=== PATIENT | female | born 1960 | race Two or more races ===

== ENCOUNTER 2020-04-08 14:21 | Outpatient (AMBR) | payer BC, SELFPAY ==
--- NOTE | 2020-03-10 16:29 | PT.OIERPT ---
PT OP Initial Eval Patient Information Visit Reasons: right shoulder post op Medical Diagnosis: M75.101 Treatment Dx #1: Right Shoulder Mobility Deficits Treatment Dx #2: Right Shoulder Weakness Start of Care: 03/10/20 Date of Onset: 02/21/20 Initial Assessment Subjective Pt is a 59 y/o female s/p right rotator cuff repair and 02/21/20 due to previous rotator cuff tear. Pt still has pain (7/10) with all activities. Pt has limitation with overhead motions, chores, cooking, cleaning, work duties, lifting, and performing ADLs. Objective Right Shoulder AROM Flexion: 100 deg Abduction: 80 deg ER and IR: unable due to pain Right Shoulder PROM FLexion: 120 deg Abduction: 110 deg External Rotation: 80 deg Internal Rotation: 50 deg Right Shoulder MMTs grossly 3-/5 Right Scapula MMTs: grossly 3-/5 Assessment Pt demonstrate right shoulder mobility and strength deficits s/p rotator cuff repair leading to decline function. Pt will benefit from physical therapy to increase ROM, strength, and work on stability Short Term and [employer]iller Goals 1) Increase right shoulder AROM WNL in 12 wks to be able to perform overhead motions 2) Increase right shoulder MMTs grossly to 3+/5 in 12 wks to be able to perform lifting activities 3) Decrease shoulder pain to 2/10 in 12 wks to be able to sleep more than 6 hrs 4) Increase right scapula MMTs grossly to 3+/5 in 12 wks to be able to perform self care activities 5) Indep with HEP Treatment Plan 1) Manual Therapy 2) Therapeutic Activities 3) Therapeutic Exercises 4) Modalities (ice, heat) Frequency and Duration 2 x wk for 12 wks Certification Dates: 03/10/20 to 06/08/20 Office Procedures PT Procedures PT Date of Service: 03/10/20 OP PT Eval Mod Complex 30 minutes: Yes
--- NOTE | 2020-03-13 15:58 | PT.ODAYNRPT ---
PT Outpatient Daily Note Date of Service: 03/13/20 OP Daily Note Visit Reasons: right shoulder post op Outpatient Physical Therapy Treatment Date: 03/13/20 Subjective: Pt mention that shoulder feels sore. Pt has been doing exercises at home Objective: Please see flow chart for list of ther ex performed Assessment: tolerate exercises with minimal pain Plan: Continue with PT Length of Time (minutes) of Treatment: 30 Minutes Office Procedures PT Procedures PT Date of Service: 03/10/20 OP PT Eval Mod Complex 30 minutes: Yes PT Procedures PT Date of Service: 03/13/20 Therapeutic Exercise 30 minutes: Yes
--- NOTE | 2020-03-17 15:51 | PT.ODAYNRPT ---
PT Outpatient Daily Note Date of Service: 03/17/20 OP Daily Note Visit Reasons: right shoulder post op Outpatient Physical Therapy Treatment Date: 03/17/20 Subjective: Pt's shoulder is sore today but is doing okay no concerns. Objective: Please see flow chart for list of ther ex performed Assessment: demonstrate improvement with AAROM in flexion and scaption during finger ladder exercise Plan: Continue with PT Length of Time (minutes) of Treatment: 30 Minutes Office Procedures PT Procedures PT Date of Service: 03/10/20 OP PT Eval Mod Complex 30 minutes: Yes PT Procedures PT Date of Service: 03/17/20 Therapeutic Exercise 30 minutes: Yes PT Procedures PT Date of Service: 03/13/20 Therapeutic Exercise 30 minutes: Yes
--- NOTE | 2020-03-19 16:04 | PT.ODAYNRPT ---
PT Outpatient Daily Note Date of Service: 03/19/20 OP Daily Note Visit Reasons: right shoulder post op Outpatient Physical Therapy Treatment Date: 03/19/20 Subjective: Pt's shoulder feels better but notice more pain at night after her exercises. Pt has been able to move her arm more with less pain Objective: Please see flow chart for list of ther ex performed Assessment: tolerate exercises; continues to improve with AAROM in all plane. less guarded today with PROM Plan: Continue with PT Length of Time (minutes) of Treatment: 40 Minutes Office Procedures PT Procedures PT Date of Service: 03/10/20 OP PT Eval Mod Complex 30 minutes: Yes PT Procedures PT Date of Service: 03/17/20 Therapeutic Exercise 30 minutes: Yes PT Procedures PT Date of Service: 03/19/20 Therapeutic Exercise 45 minutes: Yes PT Procedures PT Date of Service: 03/13/20 Therapeutic Exercise 30 minutes: Yes
--- NOTE | 2020-03-23 15:25 | PT.ODAYNRPT ---
PT Outpatient Daily Note Date of Service: 03/23/20 OP Daily Note Visit Reasons: right shoulder post op Outpatient Physical Therapy Treatment Date: 03/23/20 Subjective: Pt's shoulder better. Pt sore after each visit but reaching to shoulder height is getting easier Objective: Please see flow chart for list of ther ex performed Assessment: tolerate exercises; less pain with AAROM past shoulder height Plan: Continue with PT Length of Time (minutes) of Treatment: 40 Minutes Office Procedures PT Procedures PT Date of Service: 03/10/20 OP PT Eval Mod Complex 30 minutes: Yes PT Procedures PT Date of Service: 03/17/20 Therapeutic Exercise 30 minutes: Yes PT Procedures PT Date of Service: 03/19/20 Therapeutic Exercise 45 minutes: Yes PT Procedures PT Date of Service: 03/13/20 Therapeutic Exercise 30 minutes: Yes PT Procedures PT Date of Service: 03/23/20 Therapeutic Exercise 45 minutes: Yes
--- NOTE | 2020-03-26 15:30 | PT.ODAYNRPT ---
PT Outpatient Daily Note Date of Service: 03/26/20 OP Daily Note Visit Reasons: right shoulder post op Outpatient Physical Therapy Treatment Date: 03/26/20 Subjective: Pt's shoulder sore at night and still has difficulty sleeping on it. Objective: Please see flow chart for list of ther ex performed Assessment: tolerate exercises with minimal pain; less guarded today with all AAROM and continues to progress with ROM Plan: Continue with PT Length of Time (minutes) of Treatment: 40 Minutes Office Procedures PT Procedures PT Date of Service: 03/10/20 OP PT Eval Mod Complex 30 minutes: Yes PT Procedures PT Date of Service: 03/17/20 Therapeutic Exercise 30 minutes: Yes PT Procedures PT Date of Service: 03/19/20 Therapeutic Exercise 45 minutes: Yes PT Procedures PT Date of Service: 03/13/20 Therapeutic Exercise 30 minutes: Yes PT Procedures PT Date of Service: 03/23/20 Therapeutic Exercise 45 minutes: Yes PT Procedures PT Date of Service: 03/26/20 Therapeutic Exercise 45 minutes: Yes
--- NOTE | 2020-03-31 14:53 | PT.ODAYNRPT ---
PT Outpatient Daily Note Date of Service: 03/31/20 OP Daily Note Visit Reasons: right shoulder post op Outpatient Physical Therapy Treatment Date: 03/31/20 Subjective: Pt is having less pain in the shoulder when she sleeps. Pt feels a lot better this week and notice she can reach higher Objective: Please see flow chart for list of ther ex performed Assessment: tolerate exercises with minimal pain Plan: Continue with PT Length of Time (minutes) of Treatment: 40 Minutes Office Procedures PT Procedures PT Date of Service: 03/10/20 OP PT Eval Mod Complex 30 minutes: Yes PT Procedures PT Date of Service: 03/17/20 Therapeutic Exercise 30 minutes: Yes PT Procedures PT Date of Service: 03/19/20 Therapeutic Exercise 45 minutes: Yes PT Procedures PT Date of Service: 03/13/20 Therapeutic Exercise 30 minutes: Yes PT Procedures PT Date of Service: 03/23/20 Therapeutic Exercise 45 minutes: Yes PT Procedures PT Date of Service: 03/26/20 Therapeutic Exercise 45 minutes: Yes PT Procedures PT Date of Service: 03/31/20 Therapeutic Exercise 45 minutes: Yes
--- NOTE | 2020-04-06 14:57 | PT.ODAYNRPT ---
PT Outpatient Daily Note Date of Service: 04/06/20 OP Daily Note Visit Reasons: right shoulder post op Outpatient Physical Therapy Treatment Date: 04/06/20 Subjective: Pt mention that shoulder feels better. Pt still notice a little pain but able to reach higher Objective: Please see flow chart for list of ther ex performed Assessment: tolerate exercises with minimal pain; continues to improve with shoulder AAROM beyond shoulder height with less pain Plan: Continue with PT Length of Time (minutes) of Treatment: 30 Minutes Office Procedures PT Procedures PT Date of Service: 03/10/20 OP PT Eval Mod Complex 30 minutes: Yes PT Procedures PT Date of Service: 03/17/20 Therapeutic Exercise 30 minutes: Yes PT Procedures PT Date of Service: 03/19/20 Therapeutic Exercise 45 minutes: Yes PT Procedures PT Date of Service: 04/06/20 Therapeutic Exercise 30 minutes: Yes PT Procedures PT Date of Service: 03/13/20 Therapeutic Exercise 30 minutes: Yes PT Procedures PT Date of Service: 03/23/20 Therapeutic Exercise 45 minutes: Yes PT Procedures PT Date of Service: 03/26/20 Therapeutic Exercise 45 minutes: Yes PT Procedures PT Date of Service: 03/31/20 Therapeutic Exercise 45 minutes: Yes
--- NOTE | 2020-04-08 14:48 | PT.ODAYNRPT ---
PT Outpatient Daily Note Date of Service: 04/08/20 OP Daily Note Visit Reasons: right shoulder post op Outpatient Physical Therapy Treatment Date: 04/08/20 Subjective: Pt's shoulder is better. No pain noted today and continues to be able to perform light chores around the house lately. Objective: Please see flow chart for list of ther ex performed Assessment: tolerate exercises; minimal pain noted with all exercises Plan: Continue with PT Length of Time (minutes) of Treatment: 30 Minutes Office Procedures PT Procedures PT Date of Service: 03/10/20 OP PT Eval Mod Complex 30 minutes: Yes PT Procedures PT Date of Service: 03/17/20 Therapeutic Exercise 30 minutes: Yes PT Procedures PT Date of Service: 03/19/20 Therapeutic Exercise 45 minutes: Yes PT Procedures PT Date of Service: 04/06/20 Therapeutic Exercise 30 minutes: Yes PT Procedures PT Date of Service: 03/13/20 Therapeutic Exercise 30 minutes: Yes PT Procedures PT Date of Service: 03/23/20 Therapeutic Exercise 45 minutes: Yes PT Procedures PT Date of Service: 03/26/20 Therapeutic Exercise 45 minutes: Yes PT Procedures PT Date of Service: 03/31/20 Therapeutic Exercise 45 minutes: Yes PT Procedures PT Date of Service: 04/08/20 Therapeutic Exercise 30 minutes: Yes
== END 2020-04-09 23:59 | disposition home or self-care (01) ==
PROVIDERS: PCP Physician Assistant Medical; Referring Provider Physician Assistant Medical; Visit Provider Orthopaedic Surgery
DX: Z98.890 Other specified postprocedural states (principal); M75.101 Unspecified rotator cuff tear or rupture of right shoulder, not specified as traumatic; R53.1 Weakness; M25.511 Pain in right shoulder
CPT/HCPCS: 97110; 97162

== ENCOUNTER 2020-05-08 15:28 | Outpatient (AMBR) | payer BC, SELFPAY ==
--- NOTE | 2020-04-13 15:34 | PT.ODAYNRPT ---
PT Outpatient Daily Note Date of Service: 04/13/20 OP Daily Note Visit Reasons: right shoulder post op Outpatient Physical Therapy Treatment Date: 04/13/20 Subjective: Pt mention that she is concerns about her elbow pain. Pt mention that shoulder hurts a little but not too concern. Pt wants to know if she can sleep on her right shoulder now. Objective: Please see flow chart for list of ther ex performed Assessment: tolerate exercises with minimal pain; educated that elbow pain is relating to compensation due to decrease ROM and strength deficits in the shoulder. frequent cues to relax with shoulder external rotation stretch Plan: Continue with PT Length of Time (minutes) of Treatment: 40 Minutes Office Procedures PT Procedures PT Date of Service: 04/13/20 Therapeutic Exercise 45 minutes: Yes
--- NOTE | 2020-04-16 16:01 | PT.ODAYNRPT ---
PT Outpatient Daily Note Date of Service: 04/16/20 OP Daily Note Visit Reasons: right shoulder post op Outpatient Physical Therapy Treatment Date: 04/16/20 Subjective: Pt will be seen her surgeon in May. Pt's shoulder is feeling much better. Objective: Please see flow chart for list of ther ex performed Assessment: noted normal shoulder external rotation PROM which did not need further stretching. Pt continues to improve with AAROM in all plane with less pain Plan: Continue with PT Length of Time (minutes) of Treatment: 40 Minutes Office Procedures PT Procedures PT Date of Service: 04/13/20 Therapeutic Exercise 45 minutes: Yes PT Procedures PT Date of Service: 04/16/20 Therapeutic Exercise 45 minutes: Yes
--- NOTE | 2020-04-23 15:28 | PT.ODAYNRPT ---
PT Outpatient Daily Note Date of Service: 04/23/20 OP Daily Note Visit Reasons: right shoulder post op Outpatient Physical Therapy Treatment Date: 04/23/20 Subjective: Pt mention that her shoulder is a lot better and has been able to reach overhead with less limitation. Objective: Please see flow chart for list of ther ex performed Assessment: tolerate exercises with minimal pain Plan: Continue with PT Length of Time (minutes) of Treatment: 40 Minutes Office Procedures PT Procedures PT Date of Service: 04/13/20 Therapeutic Exercise 45 minutes: Yes PT Procedures PT Date of Service: 04/23/20 Therapeutic Exercise 45 minutes: Yes PT Procedures PT Date of Service: 04/16/20 Therapeutic Exercise 45 minutes: Yes
--- NOTE | 2020-04-28 16:08 | PT.ODAYNRPT ---
PT Outpatient Daily Note Date of Service: 04/28/20 OP Daily Note Visit Reasons: right shoulder post op Outpatient Physical Therapy Treatment Date: 04/28/20 Subjective: Pt mention that her shoulder feels good and can perform overhead motions with less limitation Objective: Please see flow chart for list of ther ex performed Assessment: tolerate exercises with minimal pain; added theraband without noted shoulder pain Plan: Continue with PT Length of Time (minutes) of Treatment: 30 Minutes Office Procedures PT Procedures PT Date of Service: 04/13/20 Therapeutic Exercise 45 minutes: Yes PT Procedures PT Date of Service: 04/23/20 Therapeutic Exercise 45 minutes: Yes PT Procedures PT Date of Service: 04/16/20 Therapeutic Exercise 45 minutes: Yes PT Procedures PT Date of Service: 04/28/20 Therapeutic Exercise 30 minutes: Yes
--- NOTE | 2020-04-30 15:58 | PT.ODS1RPT ---
PT OP Progress/Discharge Note Date of Service: 04/30/20 Progress Note/DC Note Progress Note/Discharge Note: Progress Note Patient Information Visit Reasons: right shoulder post op Medical Diagnosis: M75.101 Treatment Dx #1: Right Shoulder Mobility Deficits Treatment Dx #2: Right Shoulder Weakness Service Continue Service or Discharge: Continue Service Certification Date Certification Dates: 04/30/20 to 07/29/20 Status Subjective: Pt mention that her shoulder feels much better. Pt has been able to perform light chores around the house, wash her hair, and perform shoulder height activities with less limitation. Pt still notice some pain (5/10) based on activities. Pt still unable to sleep on the shoulder due to pain. Objective: Right Shoulder AROM Flexion: 120 deg Abduction: 100 deg External Rotation: 80 deg Internal Rotation: 60 deg Right Shoulder MMTs: grossly 3-/5 Right Scapula MMTs: grossly 3-/5 Assessment: Pt continues to improve with shoulder ROM and strength allowing her to perform light ADLs, chores, and self care activities. Pt still does not have full shoulder ROM and strength leading to difficulty with overhead motions past shoulder height, lifting, and performing recreational activities. Pt will continue to benefit from physical therapy, thank you for your referrals. Plan: Continue with PT/POC and add 12 sessions ( 2 x wk for 6 wks) Office Procedures PT Procedures PT Date of Service: 04/13/20 Therapeutic Exercise 45 minutes: Yes PT Procedures PT Date of Service: 04/23/20 Therapeutic Exercise 45 minutes: Yes PT Procedures PT Date of Service: 04/30/20 Therapeutic Exercise 45 minutes: Yes PT Procedures PT Date of Service: 04/16/20 Therapeutic Exercise 45 minutes: Yes PT Procedures PT Date of Service: 04/28/20 Therapeutic Exercise 30 minutes: Yes
--- NOTE | 2020-05-06 16:03 | PT.ODAYNRPT ---
PT Outpatient Daily Note Date of Service: 05/06/20 OP Daily Note Visit Reasons: right shoulder post op Outpatient Physical Therapy Treatment Date: 05/06/20 Subjective: Pt's shoulder and neck has been hurting for 2 days. Pt feels tightness in her neck with activities. Objective: TTP left levator scapulae and upper trape Assessment: decrease left neck pain after stretching; Pt still exhibit pain with full AROM. Pt's has WFL PROM in all plane when assessed Plan: Continue with PT Length of Time (minutes) of Treatment: 40 Minutes Office Procedures PT Procedures PT Date of Service: 04/13/20 Therapeutic Exercise 45 minutes: Yes PT Procedures PT Date of Service: 04/23/20 Therapeutic Exercise 45 minutes: Yes PT Procedures PT Date of Service: 04/30/20 Therapeutic Exercise 45 minutes: Yes PT Procedures PT Date of Service: 05/06/20 Therapeutic Exercise 45 minutes: Yes PT Procedures PT Date of Service: 04/16/20 Therapeutic Exercise 45 minutes: Yes PT Procedures PT Date of Service: 04/28/20 Therapeutic Exercise 30 minutes: Yes
--- NOTE | 2020-05-08 16:02 | PT.ODAYNRPT ---
PT Outpatient Daily Note Date of Service: 05/08/20 OP Daily Note Visit Reasons: right shoulder post op Outpatient Physical Therapy Treatment Date: 05/08/20 Subjective: Pt's shoulder better but stir or cooking irritate the shoulder Objective: Please see flow chart for list of ther ex performed Assessment: tolerate exercises with minimal pain Plan: Continue with PT Length of Time (minutes) of Treatment: 30 Minutes Office Procedures PT Procedures PT Date of Service: 04/13/20 Therapeutic Exercise 45 minutes: Yes PT Procedures PT Date of Service: 04/23/20 Therapeutic Exercise 45 minutes: Yes PT Procedures PT Date of Service: 04/30/20 Therapeutic Exercise 45 minutes: Yes PT Procedures PT Date of Service: 05/06/20 Therapeutic Exercise 45 minutes: Yes PT Procedures PT Date of Service: 05/08/20 Therapeutic Exercise 30 minutes: Yes PT Procedures PT Date of Service: 04/16/20 Therapeutic Exercise 45 minutes: Yes PT Procedures PT Date of Service: 04/28/20 Therapeutic Exercise 30 minutes: Yes
== END 2020-05-10 23:59 | disposition home or self-care (01) ==
PROVIDERS: PCP Physician Assistant Medical; Referring Provider Physician Assistant Medical; Visit Provider Orthopaedic Surgery
DX: Z98.890 Other specified postprocedural states (principal); M25.511 Pain in right shoulder; M75.01 Adhesive capsulitis of right shoulder; R53.1 Weakness
CPT/HCPCS: 97110

== ENCOUNTER → 2024-05-16 | Outpatient (CLI) | payer BC, SELFPAY ==
--- NOTE | 2024-05-16 16:31 | XR_ITS ---
Examination: PA lateral chest 2 views Technique: Upright PA lateral chest 2 views Exam date and time: May 16, 2024 1733 hrs. Comparison February 20, 2023 Indications: Chest pain beginning 2 weeks ago. Findings: Mild prominence of ventricle Minimal central pulmonary vascular congestion. No pneumonia or pulmonary edema Impression: Minimal central pulmonary vascular congestion
== END | disposition home or self-care (01) ==
PROVIDERS: PCP Internal Medicine; Referring Provider Internal Medicine; Visit Provider Internal Medicine
DX: R09.89 Other specified symptoms and signs involving the circulatory and respiratory systems (principal)
CPT/HCPCS: 71046

== ENCOUNTER → 2024-05-20 | Outpatient (CLI) | payer BC, SELFPAY ==
[2024-05-20 08:47] LABS: Basophils % (Auto) 0 % (0-2.5); Eosinophils # (Auto) 0.2 Thou/mm3 (0.0-0.5); Eosinophils % (Auto) 3 % (0-10); Hematocrit 39.4 % (36.0-46.0); Immature Granulocytes % (Auto) 0 % (0-0); Immature Granulocytes Auto 0.02 Thou/mm3 (0.00-0.00); Lymphocytes # (Auto) 2.6 Thou/mm3 (1.0-4.8); Lymphocytes % (Auto) 46 % (10-50); Mean Corpuscular Hemoglobin 26.6 pg (25.0-35.0); Mean Corpuscular Volume 81 fL (80-100); Monocytes # (Auto) 0.4 Thou/mm3 (0.0-0.8); Monocytes % (Auto) 7 % (0-12); Neutrophils # (Auto) 2.5 Thou/mm3 (1.8-7.7); Neutrophils % (Auto) 44 % (37-80); Nucleated Red Blood Cell % 0 /100 WBC (0); Platelet Count 353 Thou/mm3 (140-440); RDW Standard Deviation 37.3 fL (36.4-46.3); Red Blood Count 4.88 Miln/mm3 (4.00-5.20); White Blood Count 5.8 Thou/mm3 (3.6-11.0)
[2024-05-20 08:51] LABS: B-Type Natriuretic Peptide 20 pg/mL (0-100)
[2024-05-20 08:57] LABS: Vitamin B12 368 pg/mL (211-911); Vitamin D 25 Hydroxy Total 11.6 ng/mL (7.3-40.2)
[2024-05-20 09:01] LABS: Alanine Aminotransferase 15 U/L (10-49); Albumin, Serum 4.4 gm/dL (3.4-4.8); Albumin/Globulin Ratio 1.6 (1.2-2.2); Alkaline Phosphatase 94 U/L (46-116); Anion Gap 6 (7-16); Aspartate Amino Transferase 16 U/L (0-34); BUN/Creatinine Ratio 16 Ratio (12-20); Bilirubin,Total 0.3 mg/dL (0.3-1.2); Blood Urea Nitrogen 13 mg/dL (9-23); Calcium 9.7 mg/dL (8.3-10.6); Calcium (Corrected) 9.7 mg/dL (8.5-10.1); Carbon Dioxide 27.7 mMol/L (20.0-31.0); Cardiac Risk Estimate 4.2 RATIO (3.7-5.6); Chloride 106 mMol/L (98-107); Cholesterol 251 mg/dL (132-200); Creatinine (Component) 0.8 mg/dL (0.6-1.3); Free T4 (Free Thyroxine) 1.24 ng/dL (0.89-1.76); Globulin 2.8 gm/dL (2.3-3.5); Glucose 105 mg/dL (74-106); HDL Cholesterol 60 mg/dL (40-60); LDL Cholesterol,Calculated 144 mg/dL (0-130); Osmolality,Calculated 279 (275-295); Potassium 4.4 mMol/L (3.4-5.1); Sodium 140 mMol/L (136-145); Thyroid Stimulating Hormone 5.36 uIU/mL (0.55-4.78); Total Protein 7.2 gm/dL (5.7-8.2); Triglycerides 237 mg/dL (30-150); eGFR > 60 See Note
[2024-05-20 09:03] LABS: Total Iron Binding Capacity 381 mcg/dL (250-425)
[2024-05-20 09:10] LABS: Glucose Estimated Average 123 mg/dL (80-131); Hemoglobin A1C 5.9 % Hgb (4.8-6.0)
[2024-05-20 09:14] LABS: Iron 58 mcg/dL (50-170); Percent Iron Saturation 15 % (20-55); Unsaturated Iron Binding 323 (225-295)
== END | disposition home or self-care (01) ==
PROVIDERS: PCP Internal Medicine; Referring Provider Internal Medicine; Visit Provider Internal Medicine
DX: Z00.00 Encounter for general adult medical examination without abnormal findings (principal); E55.9 Vitamin D deficiency, unspecified
CPT/HCPCS: 36415; 80053; 80061; 82306; 82607; 83036; 83540; 83550; 83880; 84439; 84443; 85025

== ENCOUNTER → 2024-05-22 | Outpatient (CLI) | payer BC, SELFPAY ==
[2024-05-28 06:56] LABS: Fecal Globin Result NOT DETECTED (NOT DETECTED)
== END | disposition home or self-care (01) ==
LOC: SLDO 08:04
PROVIDERS: PCP Internal Medicine; Referring Provider Internal Medicine; Visit Provider Internal Medicine
DX: Z00.00 Encounter for general adult medical examination without abnormal findings (principal)
CPT/HCPCS: 82274; G0328

== ENCOUNTER → 2024-05-31 | Outpatient (CLI) | payer BC, SELFPAY ==
--- NOTE | 2024-05-31 10:00 | XR_ITS ---
Examination: Screening digital mammography, bilateral Computer aided detection 3-D breast Tomosynthesis, bilateral Date and time of exam: May 31, 2024 0942 hours Compared to mammograms dating to January 08, 2019 Indication: Screening Technique: Nonmagnified MLO, CC views of the breasts to been obtained, reconstructed from 3-D Tomosynthesis images. R2 computer aided detection program utilized for evaluation of suspicious masses and/or abnormal calcifications. 3-D Tomosynthesis images obtained. Findings: Scattered areas of fibroglandular density. Benign calcifications. No interval suspicious masses Impression: BI-RADS category II: Benign Findings. Recommend 1 year follow-up mammogram.
== END | disposition home or self-care (01) ==
PROVIDERS: PCP Internal Medicine; Referring Provider Internal Medicine; Visit Provider Internal Medicine
DX: Z12.31 Encounter for screening mammogram for malignant neoplasm of breast (principal); R92.323 Mammographic fibroglandular density, bilateral breasts; R92.1 Mammographic calcification found on diagnostic imaging of breast
CPT/HCPCS: 77063; 77067

== ENCOUNTER → 2024-07-22 | Outpatient (CLI) | payer BC, SELFPAY ==
--- NOTE | 2024-07-22 14:03 | XR_ITS ---
Examination: Foot bilateral, 6 views Technique: AP, oblique, lateral views each foot total 6 views Date and time of exam: July 22, 2024 1555 hours INDICATIONS: Patient fell 3 days ago with injury to both feet, bilateral foot pain. FINDINGS: No acute fracture or dislocation involving either foot No foreign bodies No cortical bone destruction IMPRESSION: No acute fracture or dislocation involving either foot
--- NOTE | 2024-07-22 14:03 | XR_ITS ---
Examination: Tibia-Fibula, left , 2 views Technique: Tibia-fibula AP lateral 2 views Date and time of exam: July 22, 2024 1555 hours INDICATIONS: Patient fell 3 days ago with injury to the lower leg, lower leg pain. FINDINGS: No fracture or dislocation. No foreign body IMPRESSION: No fracture or dislocation
--- NOTE | 2024-07-22 14:03 | XR_ITS ---
Examination: Ankle Bilateral, 6 views Technique: AP oblique lateral each ankle total 6 views Date and time of exam: July 22, 2024 1555 hours INDICATIONS: Patient fell 3 days ago with injury to both ankles, bilateral ankle pain. FINDINGS: No fracture or dislocation involving either ankle No foreign bodies IMPRESSION: No fracture or dislocation involving either ankle
--- NOTE | 2024-07-22 14:03 | XR_ITS ---
Examination: Knee, left , 3 views Technique: Knee AP, lateral, oblique 3 views Date and time of exam: July 22, 2024 1555 hours INDICATIONS: Patient fell 3 days ago with injury to the knee, knee pain. FINDINGS: Moderate to advanced osteoarthritis medial joint space No fracture or dislocation Small to moderate knee effusion Moderate osteoarthritis patellofemoral joint IMPRESSION: No acute fracture
== END | disposition home or self-care (01) ==
LOC: CDIM 13:46
PROVIDERS: PCP Internal Medicine; Referring Provider Internal Medicine; Visit Provider Internal Medicine
DX: S99.922A Unspecified injury of left foot, initial encounter (principal); S99.912A Unspecified injury of left ankle, initial encounter; S99.911A Unspecified injury of right ankle, initial encounter; S99.921A Unspecified injury of right foot, initial encounter; S89.92XA Unspecified injury of left lower leg, initial encounter; W19.XXXA Unspecified fall, initial encounter
CPT/HCPCS: 73562; 73590; 73610; 73630

== ENCOUNTER → 2024-10-14 | Outpatient (CLI) | payer BC, SELFPAY ==
--- NOTE | 2024-10-14 12:28 | XR_ITS ---
Examination: PA lateral chest 2 views TECHNIQUE: Upright PA lateral chest 2 views Date and time: October 14, 2024 12:40 PM INDICATIONS: Intermittent chest pain several years. FINDINGS: Normal heart size. Lungs are clear. The osseous structures are intact IMPRESSION: No active disease
--- NOTE | 2024-10-14 12:28 | XR_ITS ---
Examination: Left knee single view TECHNIQUE: Standing PA left knee single view Date and time: October 14, 2024 1246 hours Comparison July 22, 2024 INDICATIONS: Knee pain 2 years. FINDINGS: Advanced osteoarthritis medial joint space No fracture Faint meniscus calcification IMPRESSION: Advanced osteoarthritis medial joint space
[2024-10-14 15:49] LABS: Basophils # (Auto) 0.0 Thou/mm3 (0.0-0.2); Basophils % (Auto) 1 % (0-2.5); Eosinophils # (Auto) 0.1 Thou/mm3 (0.0-0.5); Eosinophils % (Auto) 2 % (0-10); Hematocrit 37.9 % (36.0-46.0); Hemoglobin 12.3 g/dL (12.0-16.0); Immature Granulocytes Auto 0.02 Thou/mm3 (0.00-0.00); Lymphocytes # (Auto) 2.7 Thou/mm3 (1.0-4.8); Lymphocytes % (Auto) 35 % (10-50); Mean Corpuscular HGB Conc 32.5 g/dl (31.0-37.0); Mean Corpuscular Hemoglobin 27.3 pg (25.0-35.0); Mean Corpuscular Volume 84 fL (80-100); Monocytes # (Auto) 0.5 Thou/mm3 (0.0-0.8); Monocytes % (Auto) 7 % (0-12); Neutrophils # (Auto) 4.2 Thou/mm3 (1.8-7.7); Neutrophils % (Auto) 55 % (37-80); Nucleated Red Blood Cell # 0.00 Thou/mm3 (0.00-0.00); Nucleated Red Blood Cell % 0 /100 WBC (0); Platelet Count 329 Thou/mm3 (140-440); RDW Standard Deviation 39.8 fL (36.4-46.3); Red Blood Count 4.51 Miln/mm3 (4.00-5.20); White Blood Count 7.7 Thou/mm3 (3.6-11.0)
[2024-10-14 16:04] LABS: Glucose Estimated Average 120 mg/dL (80-131); Hemoglobin A1C 5.8 % Hgb (4.8-6.0)
[2024-10-14 16:07] LABS: INR 0.9 (0.9-1.3); Partial Thromboplastin Time 27.2 Seconds (22.0-36.0); Prothrombin Time 10.2 Seconds (9.0-12.2)
[2024-10-14 16:14] LABS: Albumin, Serum 4.4 gm/dL (3.4-4.8); Anion Gap 10 (7-16); BUN/Creatinine Ratio 16 Ratio (12-20); Blood Urea Nitrogen 14 mg/dL (9-23); Calcium 9.3 mg/dL (8.3-10.6); Calcium (Corrected) 9.3 mg/dL (8.5-10.1); Carbon Dioxide 29.5 mMol/L (20.0-31.0); Chloride 105 mMol/L (98-107); Creatinine (Component) 0.9 mg/dL (0.6-1.3); Glucose 91 mg/dL (74-106); Osmolality,Calculated 287 (275-295); Phosphorous 4.4 mg/dL (2.4-5.1); Potassium 4.3 mMol/L (3.4-5.1); Prealbumin 24.8 mg/dL (10.0-40.0); Sodium 144 mMol/L (136-145); eGFR > 60 See Note
== END | disposition home or self-care (01) ==
LOC: CDIM 12:21 → COPL 12:56
PROVIDERS: PCP Internal Medicine; Referring Provider Orthopaedic Surgery; Visit Provider Radiology Diagnostic Radiology
DX: R06.00 Dyspnea, unspecified (principal); M17.12 Unilateral primary osteoarthritis, left knee; Z00.00 Encounter for general adult medical examination without abnormal findings
CPT/HCPCS: 36415; 71046; 73560; 80069; 83036; 84134; 85025; 85610; 85730

== ENCOUNTER 2024-11-01 14:00 | Inpatient (IN) | payer BC, SELFPAY ==
--- NOTE | 2024-10-31 10:40 | EKG_ITS ---
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
[2024-10-31 10:49] VITALS: BMI 34.9
[2024-10-31 11:59] LABS: Basophils # (Auto) 0.0 Thou/mm3 (0.0-0.2); Basophils % (Auto) 0 % (0-2.5); Eosinophils # (Auto) 0.2 Thou/mm3 (0.0-0.5); Eosinophils % (Auto) 3 % (0-10); Hematocrit 37.6 % (36.0-46.0); Hemoglobin 12.8 g/dL (12.0-16.0); Immature Granulocytes Auto 0.03 Thou/mm3 (0.00-0.00); Lymphocytes # (Auto) 2.8 Thou/mm3 (1.0-4.8); Lymphocytes % (Auto) 38 % (10-50); Mean Corpuscular HGB Conc 34.0 g/dl (31.0-37.0); Mean Corpuscular Hemoglobin 28.1 pg (25.0-35.0); Mean Corpuscular Volume 83 fL (80-100); Monocytes # (Auto) 0.5 Thou/mm3 (0.0-0.8); Monocytes % (Auto) 6 % (0-12); Neutrophils # (Auto) 3.9 Thou/mm3 (1.8-7.7); Neutrophils % (Auto) 52 % (37-80); Nucleated Red Blood Cell # 0.00 Thou/mm3 (0.00-0.00); Nucleated Red Blood Cell % 0 /100 WBC (0); Platelet Count 336 Thou/mm3 (140-440); RDW Standard Deviation 38.7 fL (36.4-46.3); Red Blood Count 4.56 Miln/mm3 (4.00-5.20); White Blood Count 7.4 Thou/mm3 (3.6-11.0)
[2024-10-31 12:12] LABS: Alanine Aminotransferase 16 U/L (10-49); Albumin, Serum 4.7 gm/dL (3.4-4.8); Albumin/Globulin Ratio 1.6 (1.2-2.2); Alkaline Phosphatase 86 U/L (46-116); Anion Gap 9 (7-16); Aspartate Amino Transferase 25 U/L (0-34); BUN/Creatinine Ratio 13 Ratio (12-20); Bilirubin,Total 0.2 mg/dL (0.3-1.2); Blood Urea Nitrogen 12 mg/dL (9-23); Calcium 9.7 mg/dL (8.3-10.6); Calcium (Corrected) 9.7 mg/dL (8.5-10.1); Carbon Dioxide 27.2 mMol/L (20.0-31.0); Chloride 106 mMol/L (98-107); Creatinine (Component) 0.9 mg/dL (0.6-1.3); Estimated Creatinine Clearance 57.7 mL/min (>60); Globulin 3.0 gm/dL (2.3-3.5); Glucose 102 mg/dL (74-106); Osmolality,Calculated 282 (275-295); Potassium 4.5 mMol/L (3.4-5.1); Sodium 142 mMol/L (136-145); Total Protein 7.7 gm/dL (5.7-8.2); eGFR > 60 See Note
[2024-10-31 12:13] LABS: INR 0.9 (0.9-1.3); Partial Thromboplastin Time 25.7 Seconds (22.0-36.0); Prothrombin Time 9.7 Seconds (9.0-12.2)
--- NOTE | 2024-10-31 15:00 | SUR.PREOP ---
Pt's notified to bring pt at 0545 tomorrow.
[2024-11-01] VITALS (19 sets, daily range): BP systolic 142–187; BP diastolic 65–91; PULSE 64–101; RESP 16–94; TEMP 36.1–36.9; O2SAT 92–100; BMI 34.8; BMI 11.0
--- NOTE | 2024-11-01 07:22 | SUR.PREOP ---
Patient expressed gratitude for prayer before their procedure.
--- NOTE | 2024-11-01 10:09 | ESOP_ITS ---
Date of Procedure 11/01/24 Pre Op Diagnosis Severe DJD left knee joint Post Op Diagnosis Same Procedure Left total knee replacement Elena persona implant. Femur size 5 narrow Tibial baseplate size C Polyethylene size 11 mm medial stabilizer Patella size 26 mm Findings Patient has significant osteoarthritic changes. The medial femoral condyle was completely denuded of cartilage. The medial tibial plateau showed the same thing. Patient has significant osteophyte formation. 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 The nerve block was also given. Once satisfactory anesthesia was achieved a tourniquet was placed on left upper thigh. Intravenous antibiotics was given at the time of anesthesia. The patient was thoroughly prepped and draped. After using Esmarch the tourniquet pressure was raised to 350 mmHg. A skin incision was made 2 inches proximal to the upper pole of patella going as far down as up to the medial aspect of the tibial tuberosity. The skin was raised as a flap on the site. The bleeding vessels were electrocoagulated as and when encountered. The quadriceps tendon, medial border of the patella and the patellar tendon along the medial aspect of the tibial tuberosity was incised and reflected. The patellar tendon was reflected as much as needed to nikia the patella. The soft tissue from the upper medial border of the tibia was reflected to correct her genu varum deformity. The knee joint was flexed. The anterior cruciate ligament, medial and lateral meniscus were excised. Next para drill hole was made to the inferior surface of the femur. Following that a sword was placed. A 4?? of abduction was already put into it. Following that a cutting block for the inferior cut of the femur was placed and nicely secured with the pins. The swat was removed. The inferior cut of the femur was made and after that the cutting block was removed. Following that a sizer was placed. A decision was made to use size [5] femur implant. 2 drill holes each in 3?? of external rotation were made. The sizer was removed. Size [5] cutting block was placed. Following that anterior, posterior, anterior chamfer and posterior chamfer cuts were made. The cutting block was removed. The knee joint was extended and a 10 mm trial plastic was removed and the intended level of the tibial cut was marked. The knee joint was flexed. With the help of double-pronged the tibia was displaced anteriorly. An extramedullary jig for the cutting block placement of the tibia was placed. The mechanical axis of the zig was parallel to the mechanical axis of the tibia. Following that the tibial cutting block was placed at the desired level and was secured nicely with the help of pins. Following that the tibial cut was made. In this case was posterior cruciate ligament was saved. The cutting block was removed. The spacer was placed and a decision was made to use size [11] polyethylene. The sizing of the tibial baseplate was done and the decision was made to use size [C] tibial baseplate. Following that size [5] trial femur implant was placed in lateralized position and size [C] tibial tibial baseplate along with size [11] medial stabilizer plastic was placed in knee joint was flexed and extended quite a few times and tibial baseplate was allowed to sit wherever it wanted to. The markings were made for the tibial baseplate. 2 drill holes were made for the inferior surface of the femur trial implant. The trial implant was removed and tibial baseplate was placed again with the help of pins. The collar was placed and superior hole was drilled. Following that a fin cut was made. The patella was reamed with [26] mm diameter reamer. [12] mm thickness was left. A collar was placed and 3 drill holes were made. All the trial implant was placed and patellar tracking was checked and found to be good. Lateral release was done at this point. The wound was irrigated with antibiotic solution every 4-5 minutes. Now the power lavage antibiotic solution was used. The knee joint was flexed. The bone were made dry. The cement was mixed. With the help of cement the tibial baseplate was mounted. The excess cement was removed. The femur implant was placed and trial plastic was placed and knee joint was ext ended. Patella was also mounted with the help of cementing. Excess cement was removed. Osteophytes from the patella was removed at this time. Once the cement was set the tourniquet pressure was released. The bleeding vessels were electrocoagulated. The trial plastic was removed and 11mm medial stabilizer ultra high molecular weight polyethylene was placed. Closure The quadriceps muscle was closed with 1 strata fix in continuous fashion. The fat layer was closed with the help of 2 strata fix in continuous fashion. The skin was closed with subcutaneous absorbable suture. To cleaning the wound Prineo tape was applied. Patient tolerated procedure well. Estimated blood loss 25 mL The wound was cleaned with hydrogen proximal solution and a sterile dressing was applied. Patient tolerated procedure very well. Estimated blood loss [50] mL. Prognosis in this case is good. This was taken to the recovery room in good condition. Anesthesia GETA and other Pathology / specimen None Estimated Blood Loss 25 Surgeon Ravin Anand MD Surgical Staff Operation Date: 11/01/24 07:30 Case Staff Anesthesiologist: Oscar Willson RN First Assistant: Theresa Peters
--- NOTE | 2024-11-01 10:09 | XR_ITS ---
Examination: Knee, left , 3 views Technique: Knee AP, lateral, oblique 3 views Date and time of exam: November 01, 2024 1036 hours INDICATIONS: Postop knee replacement today. FINDINGS: Moderate osteopenia. Total left knee arthroplasty. Satisfactory alignment. No fracture IMPRESSION: Total left knee arthroplasty with satisfactory alignment
--- NOTE | 2024-11-01 11:10 | SUR.PHASEI ---
1035: Pt received in [facility] via hosptial bed. Pt obtunded. Nasal airway right nares in place. Resp even, unlabored. VS stable. Dressing to left knee dry, clean, intact. Bilateral pedal pulses palpable, regular. 1045: X-ray here to take ordered x-rays of left knee. Pt tolerated procedure with no complaints. 1105: Pt resting with no complaints voiced. Resp even, unlabored. VS stable. Dressing remains dry, clean, intact. Bilateral pedal pulses strong, regular.
[2024-11-01] MEDS: HYDROmorphone INJ 2 MG/ML VIAL 0.4 MG IVP ×3 (11:18→12:14)
--- NOTE | 2024-11-01 11:21 | SUR.PHASEII ---
1118: Pt awake with indications of pain to left knee. Pt grimacing, groaning. Pt does not speak [place]. Resp even, unlabored. VS stable. Pain medication given per orders.
--- NOTE | 2024-11-01 11:35 | ESHP_ITS ---
RE: BLANQUITA CYR : 1960 DATE OF ADMISSION: 11/01/2024 The patient came to my office on 10/31/2024 for detailed preop history and physical examination. HISTORY OF PRESENT ILLNESS: The patient presented to me with history of pain in the left knee joint. The intensity of pain is about 8-9/10. It keeps her awake at night. The patient is unable to walk more than 1 or 2 blocks before she had to slow down or stop walking altogether. Basically, quality of life and activities of daily living is affected. PAST MEDICAL HISTORY: No history of diabetes mellitus, high blood pressure, asthma, seizure, chest pain, myocardial infarction, or bleeding disorder. PAST SURGICAL HISTORY: Shoulder surgery. Right total knee replacement done in 2022. DRUG HISTORY: The patient takes pain medication on and off at her home. ALLERGIES: NIL KNOWN. FAMILY HISTORY AND SOCIAL HISTORY: The patient denies smoking, drinking and is working. PHYSICAL EXAMINATION: GENERAL: Rather normal built lady. VITAL SIGNS: Pulse is 82 per minute, blood pressure 132/76. NECK: Soft, supple. No masses felt. Trachea is centrally placed. CARDIOVASCULAR SYSTEM: First and second heart sounds normal. No murmur heard. RESPIRATORY SYSTEM: Bilateral vesicular breath sounds. CHEST: Clear. ABDOMEN: Soft. No masses felt. Bowel sounds present. EXTREMITIES: Left knee examination reveals genu varum deformity. Active range of motion 0 to 115 degrees of flexion. Crepitus is present. The patient walks with a limp. LABORATORY DATA: X-ray reveals significant osteoarthritic changes of the left knee joint with significant narrowing of the medial and patellofemoral compartment. ASSESSMENT AND PLAN: Since the patient is symptomatic and the pain is going on for more than 3-4 years, therefore, left total knee replacement was discussed and advised. With the help of knee model, etc, the procedure was explained in detail. All questions were answered. Risks with anesthesia were explained and that includes, but not limited to reaction to anesthetic agents, cardiac arrest, or rarely it might be fatal. Risks with operation include infection and if that happens, the patient may need further surgical procedure. Other risks include delayed healing, wound dehiscence, etc. Sometimes rare complication happens and if that happens, that has to be taken care of. No guarantee is given regarding outcomes of the procedure and/or relief of symptoms and the patient is fully aware of that. Accordingly, surgery is booked for 11/01/2024. Appropriate lab work done. DT: 10:20:07 TT: 11:35:00 Ref: [id number] - TID: [id number]
[2024-11-01] MEDS: RINGERS LACTATED 1000 ML 1,000 ML 20 ML IV (14:33)
[2024-11-01] MEDS: MORPHINE SULF INJ 10 MG/ML VIAL 4 MG IVP ×2 (15:11→21:45)
[2024-11-01] MEDS: ceFAZolin/D5W 1 GM IVPB 1 GM/50 ML BAG IV ×2 (15:11→21:46)
--- NOTE | 2024-11-01 15:25 | SUR.PHASEII ---
1045: Radiology here to take ordered x-rays. Pt tolerated procedure with no complaints voiced. 1130: Pt sleeping with no further complaints of pain. Resp even, unlabored. VS stable. 1138: Pt awake with complaints of pain. Grimacing and groaning. Pain medication given per order. 1150: Pt sleeping. Resp even, u nlabored. VS stable. Dressing to left knee remains dry, clean, intact, 1214: Pt awake again with c/o pain to left knee. Pt grimacing and groaning. Resp even, unlabored. VS stable. Pain medication given per order. 1305: Pt has been sleeping with no further complaints. Resp even, unlabored. VS stable. at bedside. Pt tolerating sips of water with no difficulty swallowing and no n/v. 1345: Received bed assignment. Report given to Mikaela CHARLES. 1350: Pt transferred to [facility] in stable condition.
--- NOTE | 2024-11-01 19:00 | PC.NURSE ---
At the time of rounding, pt noted she was in pain. After reviewing the MAR, pt had previously received Morphine and d/t frequency established, pt was not able to be medicated at this time. Informed pt that RN would contact MD to inform him of lack of pain control at this time; per MD telephone order, Toradol prn was ordered; will medicate pt once approved by pharmacist.
[2024-11-01] MEDS: KETOROLAC INJ 30 MG/ML VIAL 15 MG IVP (19:50)
[2024-11-02] VITALS: BP 161/80; PULSE 103; RESP 18; TEMP 36.3; O2SAT 97
--- NOTE | 2024-11-02 00:05 | PC.NURSE ---
Pt complaining of discomfort but no pain medication is available d/t frequency set by . Using translation services, #[id number], informed pt that the medications were not avaiable until 0200 for Toradol and 0400 for Morphine. Asked pt if she was in too great of discomfort, I can notify the surgeon to inform him. Pt stated that it was tolerable for now but if it did get worse, she would notify RN to contact MD.
[2024-11-02] MEDS: KETOROLAC INJ 30 MG/ML VIAL 15 MG IVP ×2 (01:50→09:32)
[2024-11-02 04:00] VITALS: BP 160/78; PULSE 91; RESP 16; TEMP 36.1; O2SAT 94
[2024-11-02] MEDS: MORPHINE SULF INJ 10 MG/ML VIAL 4 MG IVP ×2 (04:03→11:47)
[2024-11-02 05:24] LABS: Basophils # (Auto) 0.0 Thou/mm3 (0.0-0.2); Basophils % (Auto) 0 % (0-2.5); Eosinophils # (Auto) 0.0 Thou/mm3 (0.0-0.5); Eosinophils % (Auto) 0 % (0-10); Hematocrit 34.4 % (36.0-46.0); Hemoglobin 11.2 g/dL (12.0-16.0); Immature Granulocytes Auto 0.04 Thou/mm3 (0.00-0.00); Lymphocytes # (Auto) 2.1 Thou/mm3 (1.0-4.8); Lymphocytes % (Auto) 20 % (10-50); Mean Corpuscular HGB Conc 32.6 g/dl (31.0-37.0); Mean Corpuscular Hemoglobin 27.1 pg (25.0-35.0); Mean Corpuscular Volume 83 fL (80-100); Monocytes # (Auto) 0.9 Thou/mm3 (0.0-0.8); Monocytes % (Auto) 8 % (0-12); Neutrophils # (Auto) 7.5 Thou/mm3 (1.8-7.7); Neutrophils % (Auto) 72 % (37-80); Nucleated Red Blood Cell # 0.00 Thou/mm3 (0.00-0.00); Nucleated Red Blood Cell % 0 /100 WBC (0); Platelet Count 300 Thou/mm3 (140-440); RDW Standard Deviation 39.8 fL (36.4-46.3); Red Blood Count 4.13 Miln/mm3 (4.00-5.20); White Blood Count 10.5 Thou/mm3 (3.6-11.0)
[2024-11-02 07:51] VITALS: BP 137/74; PULSE 85; RESP 15; TEMP 36.1; O2SAT 95
[2024-11-02 09:53] VITALS: PULSE 84; RESP 16; RESP 95
[2024-11-02 11:56] VITALS: BP 143/71; PULSE 86; RESP 16; TEMP 36; O2SAT 94
[2024-11-02 15:00] VITALS: BP 144/76; PULSE 89; RESP 19; TEMP 37.1; O2SAT 95
== END 2024-11-02 15:13 | disposition home or self-care (01) | DRG 470 ==
LOC: S2EX 14:14 → S3SX 14:16
PROVIDERS: Anesthesiology; Admitting Provider Orthopaedic Surgery; PCP Internal Medicine; Referring Provider Orthopaedic Surgery; Visit Provider Orthopaedic Surgery
PROC: 0SRD0J9 Replacement of Left Knee Joint with Synthetic Substitute, Cemented, Open Approach (ICD-10-PCS; principal; 2024-11-01 07:30)
DX: M17.12 Unilateral primary osteoarthritis, left knee (principal); Z96.651 Presence of right artificial knee joint; M21.169 Varus deformity, not elsewhere classified, unspecified knee
CPT/HCPCS: 36415; 73562; 80053; 85025; 85610; 85730; 86850; 86900; 86901; 86923; 87081; 93005; 93225; 97162; A4217; C1713; C1776; J0131; J0689; J0690; J1100; J1171; J1580; J1885; J2250; J2270; J2405; J2704; J2795; J3010; J3490; J7120

== ENCOUNTER → 2025-03-24 | Outpatient (CLI) | payer BC, SELFPAY ==
--- NOTE | 2025-03-24 10:20 | XR_ITS ---
Examination: Knee, right, 3 views Technique: Knee AP, lateral, oblique 3 views Date and time of exam: March 24, 2025, 10:47 a.m. INDICATIONS: Status post knee surgery 5 months ago FINDINGS: Total left knee arthroplasty. Satisfactory alignment. No loosening of the prosthetic components. No fracture IMPRESSION: Total left knee arthroplasty with satisfactory alignment
== END | disposition home or self-care (01) ==
PROVIDERS: PCP Internal Medicine; Referring Provider Orthopaedic Surgery; Visit Provider Orthopaedic Surgery
DX: M25.562 Pain in left knee (principal); Z96.652 Presence of left artificial knee joint
CPT/HCPCS: 73562